=== PATIENT | female | born 1945 | race Caucasian/White ===

== ENCOUNTER 2017-09-14 17:37 | Inpatient (IN) | payer OTHER, MEDICARE ==
[2017-09-14] MEDS ORDERED: SODIUM CHLORIDE 1,000 ML IV STA (17:59)
[2017-09-14] MEDS ORDERED: ASPIRIN 81 MG CHEWABLE TABLETS PO ONE (17:59)
[2017-09-14] MEDS ORDERED: METOPROLOL TARTRATE 5 MG/5 ML VIAL IVPUSH ONE (17:59)
--- NOTE | 2017-09-14 17:59 | PDOC ---
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 She has been having these episodes occasionally for the past few weeks but they have always resolved quickly. She denies any chest pain, jaw pain, arm pain, or abdominal pain presently, and denies SOB, nausea, vomiting, or recent illness. She returned from a vacation to [facility] with her a week and a half ago. She does notes that she has been having occasional short-lived epigastric abdominal discomfort for the past three weeks, which she describes as jitters. These have occurred randomly without change with exertion or laying down flat. She actually decided to return early from [facility] because of these episodes. She also notes some occasional left upper back discomfort after eating. The patient was given 162 mg baby ASA at home just after the onset of symptoms. She and her family notes that there have been stressful family situations lately as their son is going through a difficult divorce. She was started on Paxil and alprazolam a week ago. Dr. Sood calls at the time that the patient arrives to the ED and notes that if she does need admission, her care should go to hospitalist team. Past History - Past Medical History Allergies/Adverse Reactions: Allergies Allergy/AdvReac Type Severity Reaction Status Date / Time No Known Allergies Allergy Verified 09/14/17 18:21 Home Medications: Ambulatory Orders Paroxetine HCl [Paxil] 20 mg PO DAILY 09/14/17 Rosuvastatin Calcium [Crestor] 5 mg PO MOWEFR 09/14/17 clonazePAM [Klonopin -] 0.5 mg PO BID 09/14/17 HTN: Yes Hypercholesterolemia: Yes - Suicide/Smoking/Psychosocial Hx Smoking History: Former smoker Number of Cigarettes Smoked Daily: 0 Review of Systems - Review of Systems Able to Perform ROS?: Yes Constitutional: No: Chills, Fever, Unexplained wgt Loss HEENTM: No: Nose Congestion, Throat Pain Respiratory: No: Cough, Shortness of Breath Cardiac (ROS): Yes: Palpitations. No: Chest Pain ABD/GI: Yes: Other (episodic upper abdominal discomfort, episodic left upper back discomfort). No: Constipated, Diarrhea, Nausea, Vomiting : No: Burning, Dysuria Musculoskeletal: No: Back Pain, Neck Pain Integumentary: No: Bruising, Rash Neurological: No: Headache, Numbness, Tingling, Weakness, Dizziness Endocrine: No: Unexplained Weight Gain, Unexplained Weight Loss *Physical Exam - Vital Signs Last Vital Signs Temp Pulse Resp BP Pulse Ox 97.4 F L 55 L 18 110/55 97 09/15/17 02:00 09/15/17 02:00 09/15/17 02:00 09/15/17 02:00 09/14/17 23:30 - Physical Exam General Appearance: Yes: Nourished, Appropriately Dressed, Mild Distress, Other (pale and slightly nervous appearing, but answering questions appropriately, accompanied by at bedside who is supportive) HEENT: positive: EOMI, MARTA, Normal ENT Inspection, Normal Voice, Hearing Grossly Normal. negative: Pale Conjunctivae, Scleral Icterus (R), Scleral Icterus (L), Nasal Congestion Neck: positive: Trachea midline, Supple. negative: Tender, Rigid Respiratory/Chest: positive: Lungs Clear, Normal Breath Sounds. negative: Respiratory Distress, Crackles, Rhonchi, Stridor, Wheezing Cardiovascular: positive: S1, S2, Tachycardia, Irregularly Irregular. negative : Edema, JVD, Murmur Gastrointestinal/Abdominal: positive: Normal Bowel Sounds, Flat, Soft. negative : Tender, Organomegaly, Pulsatile Mass, Guarding Musculoskeletal: positive: Normal Inspection. negative: Decreased Range of Motion, Vertebral Tenderness Extremity: positive: Normal Capillary Refill, Normal Inspection, Normal Range of Motion. negative: Tender, Cyanosis Integumentary: positive: Normal Color, Dry, Warm. 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 negative: EOM Palsy, Facial Droop, Numbness, Sensory Deficit, Confused, Disoriented Heart Score/ECG Review - History History: Moderately suspicious - Electrocardiogram EKG: Non specific repolarization disturbance - Age Age: >/= 65 - Risk Factors Risk Factors Heart Score: Yes Hx Hypercholesterolemia, Yes Hx Hypertension Based on the list above the patient has:: 1-2 risk factors - Troponin Troponin: </= normal limit - Score Heart Score - Total: 5 #1 09/14/17 17:55 Sinus tachycardia with supraventricular ectopy with ST elevations in aVR and V1 and reciprocal depressions inferolaterally which could be secondary to tachycardia but also are concerning for possible STEMI. #2 09/14/17 19:00 Sinus rhythm, rate of 71, with normal axis, no longer any ST elevations or depressions, no Q waves, good R wave progression, essentially normal EKG. ED Treatment Course - LABORATORY CBC & Chemistry Diagram: 09/14/17 18:22 09/14/17 19:10 - ADDITIONAL ORDERS Additional order review: Laboratory Results 09/14/17 09/14/17 09/14/17 19:19 19:10 19:10 PT with INR INR PTT (Actin FS) Sodium 138 Potassium 3.4 L Chloride 110 H Carbon Dioxide 22 Anion Gap 6 L BUN 15 Creatinine 0.8 Creat Clearance w eGFR > 60 Random Glucose 95 Calcium 8.4 Magnesium 1.7 L Total Bilirubin 0.7 AST 17 ALT 15 Alkaline Phosphatase 65 Creatine Kinase 33 Troponin I < 0.03 B-Natriuretic Peptide 261.29 H Total Protein 5.7 L Albumin 2.9 L TSH 1.13 Blood Type Antibody Screen 09/14/17 09/14/17 09/14/17 18:22 18:22 18:22 PT with INR 12.2 INR 1.09 PTT (Actin FS) 25.7 L Sodium Potassium Chloride Carbon Dioxide Anion Gap BUN Creatinine Creat Clearance w eGFR Random Glucose Calcium Magnesium Total Bilirubin AST ALT Alkaline Phosphatase Creatine Kinase Troponin I B-Natriuretic Peptide Cancelled Total Protein Albumin TSH Blood Type Cancelled Antibody Screen Cancelled 09/14/17 18:22 PT with INR Cancelled INR Cancelled PTT (Actin FS) Sodium Potassium Chloride Carbon Dioxide Anion Gap BUN Creatinine Creat Clearance w eGFR Random Glucose Calcium Magnesium Total Bilirubin AST ALT Alkaline Phosphatase Creatine Kinase Troponin I B-Natriuretic Peptide Total Protein Albumin TSH Blood Type Antibody Screen 09/14/17 18:22 RBC 4.24 MCV 90.5 MCHC 34.8 RDW 14.3 MPV 11.6 H Neutrophils % 70.9 Lymphocytes % 17.1 Monocytes % 7.6 Eosinophils % 2.1 Basophils % 2.3 H - RADIOLOGY Radiology Studies Ordered: Category Date Time Status CXRPORT [CHEST X-RAY PORTABLE*] [RAD] Stat Radiology 09/14/17 18:28 Completed - Medications Given in the ED: ED Medications Discontinued Medications Generic Name Dose Route Start Last Admin Trade Name Stan PRN Reason Stop Dose Admin Aspirin 162 mg 09/14/17 17:59 09/14/17 18:10 Asa - PO 09/14/17 18:00 162 mg ONCE ONE Administration Sodium Chloride 1,000 mls @ 1,000 mls/hr 09/14/17 17:59 09/14/17 18:10 Normal Saline - IV 09/14/17 18:58 1,000 mls/hr ASDIR STA Administration Magnesium Sulfate 1 gm 09/15/17 01:11 09/15/17 01:55 Magnesium Sulfate IVPB 09/15/17 01:12 1 gm ONCE ONE Administration Metoprolol Tartrate 5 mg 09/14/17 17:59 09/14/17 18:10 Lopressor Injection - IVPUSH 09/14/17 18:00 5 mg ONCE ONE Administration Metoprolol Tartrate 25 mg 09/14/17 18:55 09/14/17 19:17 Lopressor - PO 09/14/17 18:56 25 mg ONCE ONE Administration Potassium Chloride 40 meq 09/15/17 01:11 09/15/17 01:55 K-Dur - PO 09/15/17 01:12 40 meq ONCE ONE Administration Medical Decision Making - Medical Decision Making 72 YOF with h/o HTN and HLD presents with rapid palpitations x1 hour, episodic epigastric discomfort x3-4 weeks. VS notable for HR in the 120s Exam notable for pallor, anxious/uncomfortable appearance, rapid irregular heart rate, otherwise normal exam. DDX IBNLT ACS, SVT, A-fib with RVR, thyroid disease, Ordered is CBCD CMP Mg Phos Cardiac panel TSH UA UCx CXR EKG ASA 162 Metoprolol 5 mg push. Patient on monitor with O2 available, will reassess need for NTG after metoprolol but hold for now. EKG shows sinus tach with ectopy and AMADEO in aVR and V1, STD inferolaterally. First labs hemolyzed and redrawn. 09/14/17 18:45 Patient's HR improved dramatically after metoprolol, now in the 70s. On reassessment patient states she feels much better, appears slightly less pale. 09/14/17 19:00 Repeat EKG notable for NSR, rate of 71, no ST-T changes, normal EKG. CXR shows no e/o acute cardiopulmonary processes. Labs pending. HEART score is at least 5 (will be higher is troponin positive). Patient will need to be admitted for observation. Dr. Sood did call at the beginning of patient's visit; her admission goes to hospitalist team. Care endorsed to Dr. Delgado at the end of my shift. *DC/Admit/Observation/Transfer Diagnosis at time of Disposition: Palpitations, Tachycardia, Abnormal EKG - Referrals - Patient Instructions - Post Discharge Activity
[2017-09-14] MEDS ORDERED: ASPIRIN 81 MG CHEWABLE TABLETS ONE (18:08)
[2017-09-14] MEDS ORDERED: METOPROLOL TARTRATE 5 MG/5 ML VIAL ONE (18:08)
[2017-09-14] MEDS ORDERED: METOPROLOL TARTRATE 25 MG TABLET (FP) PO ONE (18:55)
[2017-09-14 19:04] LABS: BASO % 2.3 % (0-2.0); EOS % 2.1 % (0-4.5); HEMATOCRIT 38.4 % (32.4-45.2); HEMOGLOBIN 13.4 GM/dl (10.7-15.3); LYMPH % 17.1 % (8-40); MCH 31.5 pg (25.7-33.7); MCHC 34.8 g/dl (32.0-36.0); MEAN CELL VOLUME 90.5 fl (80-96); MEAN PLT VOLUME 11.6 fl (7.5-11.1); MONO % 7.6 % (3.8-10.2); NEUT % 70.9 % (42.8-82.8); PLATELET COUNT 198 K/MM3 (134-434); RBC 4.24 M/mm3 (3.60-5.2); RDW 14.3 % (11.6-15.6); WHITE BLOOD COUNT 7.2 K/mm3 (4.0-10.8)
[2017-09-14] MEDS ORDERED: METOPROLOL TARTRATE 50 MG TABLET (FP) ONE (19:15)
[2017-09-14 19:33] LABS: INR 1.09 (0.82-1.09); PROTHROMBIN TIME (PATIENT) 12.2 SEC (10.2-13.0)
[2017-09-14 19:41] LABS: ACTIVATED PTT 25.7 SECONDS (24.0-38.9)
[2017-09-14 19:51] LABS: ALBUMIN 2.9 g/dl (3.5-5.0); ALK PHOS 65 U/L (32-92); ANION GAP 6 (8-16); BILIRUBIN,TOTAL 0.7 mg/dl (0.2-1.0); BLOOD UREA NITROGEN 15 mg/dl (7-18); CALCIUM 8.4 mg/dl (8.4-10.2); CHLORIDE 110 mmol/L (98-107); CO2 22 mmol/L (22-28); CREATININE 0.8 mg/dl (0.6-1.3); GLUCOSE,RANDOM 95 mg/dl (74-106); MAGNESIUM 1.7 mg/dL (1.8-2.4); POTASSIUM 3.4 mmol/L (3.5-5.1); SGOT/AST 17 U/L (10-42); SGPT/ALT 15 U/L (10-40); SODIUM 138 mmol/L (136-145); TOT PROT 5.7 g/dl (6.4-8.3)
--- NOTE | 2017-09-14 19:59 | PDOC ---
*Physical Exam - Vital Signs Last Vital Signs Temp Pulse Resp BP Pulse Ox 97.8 F 66 20 156/76 100 09/14/17 17:41 09/14/17 19:23 09/14/17 19:23 09/14/17 19:23 09/14/17 19:23 <Stuart Delgadomi Atwood - Last Filed: 09/14/17 20:50> - Vital Signs Last Vital Signs Temp Pulse Resp BP Pulse Ox 97.8 F 66 20 156/76 100 09/14/17 17:41 09/14/17 19:23 09/14/17 19:23 09/14/17 19:23 09/14/17 19:23 <Kristine Alvarado - Last Filed: 09/14/17 21:12> ED Treatment Course - LABORATORY CBC & Chemistry Diagram: 09/14/17 18:22 09/14/17 19:10 - ADDITIONAL ORDERS Additional order review: Laboratory Results 09/14/17 09/14/17 09/14/17 19:10 18:22 18:22 PT with INR INR PTT (Actin FS) Sodium 138 Potassium 3.4 L Chloride 110 H Carbon Dioxide 22 Anion Gap 6 L BUN 15 Creatinine 0.8 Creat Clearance w eGFR > 60 Random Glucose 95 Calcium 8.4 Magnesium 1.7 L Total Bilirubin 0.7 AST 17 ALT 15 Alkaline Phosphatase 65 Creatine Kinase 33 B-Natriuretic Peptide Cancelled Total Protein 5.7 L Albumin 2.9 L Blood Type Cancelled Antibody Screen Cancelled 09/14/17 09/14/17 18:22 18:22 PT with INR 12.2 Cancelled INR 1.09 Cancelled PTT (Actin FS) 25.7 L Sodium Potassium Chloride Carbon Dioxide Anion Gap BUN Creatinine Creat Clearance w eGFR Random Glucose Calcium Magnesium Total Bilirubin AST ALT Alkaline Phosphatase Creatine Kinase B-Natriuretic Peptide Total Protein Albumin Blood Type Antibody Screen 09/14/17 18:22 RBC 4.24 MCV 90.5 MCHC 34.8 RDW 14.3 MPV 11.6 H Neutrophils % 70.9 Lymphocytes % 17.1 Monocytes % 7.6 Eosinophils % 2.1 Basophils % 2.3 H - Medications Given in the ED: ED Medications Discontinued Medications Generic Name Dose Route Start Last Admin Trade Name Freq PRN Reason Stop Dose Admin Aspirin 162 mg 09/14/17 17:59 09/14/17 18:10 Asa - PO 09/14/17 18:00 162 mg ONCE ONE Administration Sodium Chloride 1,000 mls @ 1,000 mls/hr 09/14/17 17:59 09/14/17 18:10 Normal Saline - IV 09/14/17 18:58 1,000 mls/hr ASDIR STA Administration Metoprolol Tartrate 5 mg 09/14/17 17:59 09/14/17 18:10 Lopressor Injection - IVPUSH 09/14/17 18:00 5 mg ONCE ONE Administration Metoprolol Tartrate 25 mg 09/14/17 18:55 09/14/17 19:17 Lopressor - PO 09/14/17 18:56 25 mg ONCE ONE Administration <Elizabeth Delgado - Last Filed: 09/14/17 20:50> - LABORATORY CBC & Chemistry Diagram: 09/14/17 18:22 09/14/17 19:10 - ADDITIONAL ORDERS Additional order review: Laboratory Results 09/14/17 09/14/17 09/14/17 19:10 19:10 18:22 PT with INR INR PTT (Actin FS) Sodium 138 Potassium 3.4 L Chloride 110 H Carbon Dioxide 22 Anion Gap 6 L BUN 15 Creatinine 0.8 Creat Clearance w eGFR > 60 Random Glucose 95 Calcium 8.4 Magnesium 1.7 L Total Bilirubin 0.7 AST 17 ALT 15 Alkaline Phosphatase 65 Creatine Kinase 33 Troponin I < 0.03 B-Natriuretic Peptide Total Protein 5.7 L Albumin 2.9 L Blood Type Cancelled Antibody Screen Cancelled 09/14/17 09/14/17 09/14/17 18:22 18:22 18:22 PT with INR 12.2 Cancelled INR 1.09 Cancelled PTT (Actin FS) 25.7 L Sodium Potassium Chloride Carbon Dioxide Anion Gap BUN Creatinine Creat Clearance w eGFR Random Glucose Calcium Magnesium Total Bilirubin AST ALT Alkaline Phosphatase Creatine Kinase Troponin I B-Natriuretic Peptide Cancelled Total Protein Albumin Blood Type Antibody Screen 09/14/17 18:22 RBC 4.24 MCV 90.5 MCHC 34.8 RDW 14.3 MPV 11.6 H Neutrophils % 70.9 Lymphocytes % 17.1 Monocytes % 7.6 Eosinophils % 2.1 Basophils % 2.3 H - Medications Given in the ED: ED Medications Discontinued Medications Generic Name Dose Route Start Last Admin Trade Name Freq PRN Reason Stop Dose Admin Aspirin 162 mg 09/14/17 17:59 09/14/17 18:10 Asa - PO 09/14/17 18:00 162 mg ONCE ONE Administration Sodium Chloride 1,000 mls @ 1,000 mls/hr 09/14/17 17:59 09/14/17 18:10 Normal Saline - IV 09/14/17 18:58 1,000 mls/hr ASDIR STA Administration Metoprolol Tartrate 5 mg 09/14/17 17:59 09/14/17 18:10 Lopressor Injection - IVPUSH 09/14/17 18:00 5 mg ONCE ONE Administration Metoprolol Tartrate 25 mg 09/14/17 18:55 09/14/17 19:17 Lopressor - PO 09/14/17 18:56 25 mg ONCE ONE Administration <Kristine Alvarado - Last Filed: 09/14/17 21:12> Medical Decision Making - Medical Decision Making 09/14/17 21:[address] to Dr. Marissa Trent, awaiting call back. <Kristine Alvarado - Last Filed: 09/14/17 21:12> *DC/Admit/Observation/Transfer - Discharge Dispostion Admit: Yes <Elizabeth Delgado - Last Filed: 09/14/17 20:50> - Attestations Scribe Attestion: 09/14/17 21:12 Documentation prepared by Kristine Alvarado, acting as medical chief technician for Elizabeth Delgado MD. <Kristine Alvarado - Last Filed: 09/14/17 21:12> Diagnosis at time of Disposition: Acute coronary syndrome, Supraventricular tachycardia - Discharge Dispostion Condition at time of disposition: Guarded - Referrals Referrals: Bacilio Sood MD [Primary Care Provider] - - Patient Instructions - Post Discharge Activity
[2017-09-14 21:19] LABS: N-TERMINAL BNP 261.29 pg/ml (5-125)
--- NOTE | 2017-09-14 23:22 | PDOC ---
Attending Attestation - Resident Resident Name: Cady Raymundo - ED Attending Attestation I have performed the following: I have examined & evaluated the patient, The case was reviewed & discussed with the resident, I agree w/resident's findings & plan, Exceptions are as noted - HPI HPI: 09/14/17 23:09 The patient is a 72 year old female with past medical history of hypertension, hyperlipidemia, depression, anxiety, and hip replacement 2 years ago who presents to the ED with complaints of palpitations for the past hour. She denies any associated chest pain, SOB, diaphoresis, jaw or arm pain. For the past three weeks she has noticed shes been having epigastric jitters. Pt had recent trip back from [place] a week and a half ago. The patient denies any associated fevers, chills, nausea, vomiting, diarrhea, cough, or urinary complaints. She notes shes been having a lot of family related stress recently as well. PCP: Bacilio Black - Physicial Exam PE: 09/14/17 23:22 GENERAL: Awake, alert, and fully oriented, in no acute distress HEAD: No signs of trauma EYES: PERRLA, EOMI, sclera anicteric, conjunctiva clear ENT: Auricles normal inspection, hearing grossly normal, nares patent, oropharynx clear without exudates. Moist mucosa NECK: Normal ROM, supple, no lymphadenopathy, JVD, or masses LUNGS: Breath sounds equal, clear to auscultation bilaterally. No wheezes, and no crackles HEART: Irregularly irregular, normal S1 and S2, no murmurs, rubs or gallops ABDOMEN: Soft, nontender, normoactive bowel sounds. No guarding, no rebound. No masses EXTREMITIES: Normal range of motion, no edema. No clubbing or cyanosis. No cords, erythema, or tenderness BACK: No midline spinal tenderness in cervical/thoracic/lumbar region NEUROLOGICAL: Normal speech, cranial nerves intact, negative pronator drift, 5/ 5 strength in all 4 extremities, normal sensation to light touch in all 4 extremities, normal cerebellar exam, normal gait, normal reflexes and tone SKIN: Warm, Dry, normal turgor, no rashes or lesions noted. - Medical Decision Making 09/14/17 19:00 72yo F hx HTN, HL p/w palpatations, found to be in AF in RVR to 140s. Initial EKG with AMADEO in AVL and STD in V4-6 which were rate dependent. After metoprolol 5mg IV -> repeat EKG with resolution of AMADEO and STD with rate 71, NSR. Labs/CXR pending, pt signed out to Dr. Delgado for further mgmt/dispo.
[2017-09-15] MEDS ORDERED: POTASSIUM CHLORIDE TABS 20 MEQ TABLET.ER (FP) PO ONE (01:11)
[2017-09-15] MEDS ORDERED: MAGNESIUM SULF 50% (8.12 MEQ/2 ML-1 GM VIAL) IVPB ONE (01:11)
--- NOTE | 2017-09-15 01:19 | HP ---
CHIEF COMPLAINT: palpitations x 1 hr PCP: Dr. Sood HISTORY OF PRESENT ILLNESS: 72 y/o F with PMH HTN, HLD, depression, anxiety, s/p hip replacement, who presents to the [facility] ED c/o irregular palpitations for one hour. As per patient, at 5pm she had strong heart palpitations, so her drove her to [facility]. Pt describes the sensation as "a rapid heartbeat," but states that it is not a/w chest pain, diaphoresis, jaw or LUE radiation. When it began, she took two baby aspirins at home. She has had similar palpitations twice before, the last being one month ago when she was in [facility]. During all of her episodes, she has taken two aspirins and it has resolved. Pt states that she has had increased stress recently as her son is undergoing a divorce. At this time, pt also endorses a "trembling" sensation in her stomach when she gets nervous, which has caused a lack of appetite, insomnia, and recent twenty pound weight loss. Pt saw Dr. Sood for these sx and received anxiety medications which she stated helped very much. Pt denies RYAN, fever, chills, SOB, chest pain or pressure, or changes in urinary or bowel function. When patient was at [facility], she was found to be in afib with RVR with HR in 140's, along with ST depressions in V4-V6. She was given aspirin 162mg PO x 1 , metoprolol 25mg PO x 1 , as well as a push of metoprolol- IVP 5mg x 1 and reconverted back to sinus. ER course was notable for: (1) aspirin 162mg PO (2) metoprolol 25mg PO x1 (3) metoprolol IVP 5mg x 1 (4) initial trop (-) Recent Travel: [place] one month ago PAST MEDICAL HISTORY: as above PAST SURGICAL HISTORY: s/p L hip replacement (3 yrs ago), R oopherectomy (15 yrs ago) Social History: retired; previously worked as a book keeper and seller for [employer] Smoking: does not smoke currently. previously smoked for 3-4 yrs "intermittently " 2-3 cigarettes/week Alcohol: denies Drugs: denies Family History: father- kidney dz. mother- stroke, HTN. brother- HTN Allergies Green vasquez peppers- causes N/V Codeine - throat closure HOME MEDICATIONS: Home Medications Medication Instructions Recorded Paroxetine HCl [Paxil] 20 mg PO DAILY 09/14/17 Rosuvastatin Calcium [Crestor] 5 mg PO MOWEFR 09/14/17 clonazePAM [Klonopin -] 0.5 mg PO BID 09/14/17 REVIEW OF SYSTEMS CONSTITUTIONAL: Absent: fever, chills, diaphoresis, generalized weakness, malaise, loss of appetite, weight change HEENT: Absent: rhinorrhea, nasal congestion, throat pain, throat swelling, difficulty swallowing, mouth swelling, ear pain, eye pain, visual changes CARDIOVASCULAR: +palpitations, irregular HR Absent: chest pain, syncope, lightheadedness, peripheral edema RESPIRATORY: Absent: cough, shortness of breath, dyspnea with exertion, orthopnea, wheezing, stridor, hemoptysis GASTROINTESTINAL: Absent: abdominal pain, abdominal distension, nausea, vomiting, diarrhea, constipation, melena, hematochezia GENITOURINARY: Absent: dysuria, frequency, urgency, hesitancy, hematuria, flank pain, genital pain MUSCULOSKELETAL: Absent: myalgia, arthralgia, joint swelling, back pain, neck pain SKIN: Absent: rash, itching, pallor HEMATOLOGIC/IMMUNOLOGIC: Absent: easy bleeding, easy bruising, lymphadenopathy, frequent infections ENDOCRINE: Absent: unexplained weight gain, unexplained weight loss, heat intolerance, cold intolerance NEUROLOGIC: Absent: headache, focal weakness or paresthesias, dizziness, unsteady gait, seizure, mental status changes, bladder or bowel incontinence PSYCHIATRIC: Absent: anxiety, depression, suicidal or homicidal ideation, hallucinations. PHYSICAL EXAMINATION Vital Signs 09/14/17 09/14/17 09/14/17 17:41 18:10 18:30 Temperature 97.8 F Pulse Rate 146 H Pulse Rate [ 96 H Apical] Respiratory 16 20 Rate Blood Pressure 114/95 114/95 Blood Pressure 110/85 [Arm] O2 Sat by Pulse 96 98 Oximetry (%) 09/14/17 09/14/17 09/14/17 18:49 19:23 21:25 Temperature Pulse Rate Pulse Rate [ 71 66 61 Apical] Respiratory 16 20 14 Rate Blood Pressure Blood Pressure 117/95 156/76 118/88 [Arm] O2 Sat by Pulse 100 100 100 Oximetry (%) GENERAL: Pleasant woman. Resting comfortably, awake, alert, and fully oriented, in no acute distress. HEAD: Normal with no signs of trauma. EYES: Pupils equal, round and reactive to light, extraocular movements intact, sclera anicteric, conjunctiva clear. EARS, NOSE, THROAT: Ears normal, nares patent, oropharynx clear without exudates. Moist mucous membranes. NECK: Normal range of motion, supple . LUNGS: Breath sounds equal, clear to auscultation bilaterally. No wheezes, and no crackles. No accessory muscle use. HEART: Regular rate and rhythm - in sinus during exam. normal S1 and S2 without murmur, rub or gallop. ABDOMEN: Soft, nontender, not distended, normoactive bowel sounds, no guarding, no rebound, no masses. LOWER EXTREMITIES: 2+ posterior tibial pulses, warm, well-perfused. No calf tenderness. No peripheral edema. NEUROLOGICAL: Cranial nerves II-XII intact. PSYCHIATRIC: Cooperative. Calm Laboratory Results - last 24 hr 09/14/17 09/14/17 18:22 18:22 WBC 7.2 RBC 4.24 Hgb 13.4 Hct 38.4 MCV 90.5 MCH 31.5 MCHC 34.8 RDW 14.3 Plt Count 198 MPV 11.6 H Neutrophils % 70.9 Lymphocytes % 17.1 Monocytes % 7.6 Eosinophils % 2.1 Basophils % 2.3 H PT with INR 12.2 INR 1.09 PTT (Actin FS) 25.7 L Blood Type Antibody Screen 09/14/17 19:10 WBC Troponin I < 0.03 B-Natriuretic Peptide Antibody Screen 09/14/17 09/14/17 19:10 19:19 PTT (Actin FS) Sodium 138 Potassium 3.4 L Chloride 110 H Carbon Dioxide 22 Anion Gap 6 L BUN 15 Creatinine 0.8 Creat Clearance w eGFR > 60 Random Glucose 95 Calcium 8.4 Magnesium 1.7 L Total Bilirubin 0.7 AST 17 ALT 15 Alkaline Phosphatase 65 Creatine Kinase 33 Troponin I B-Natriuretic Peptide 261.29 H Total Protein 5.7 L Albumin 2.9 L TSH 1.13 Blood Type Antibody Screen TESTS CXR: without acute pathology. shows tortuosity and calcification of thoracic aorta, degenerative changes in thoracic spine Initial EKG at [facility]: afib with RVR , HR 140's. st depressions V4-V6 Subsequent EKG at [facility] (after metoprolol): converted back to sinus - NSR, rate 70, no st depressions evident ASSESSMENT/PLAN: 72 y/o F with PMH HTN, HLD, depression, anxiety, s/p hip replacement, who presents to the [facility] ED c/o irregular palpitations for one hour. Pt admitted to telemetry for R/o ACS, new onset Afib with RVR. #R/o ACS -though pt without chest pain, c/o chest palpitations - will r/o ACS -initial troponin 0.03 (-). continue to trend trops q6h. Next trop 6AM -continue to follow EKG -telemetry monitoring -F/u lipid panel #New onset Afib with RVR -Pt received rate control metoprolol tartate 25mg PO x 1, metoprolol IVP 5mg in ED -Will start on metoprolol succinate 12.5mg PO qd starting tomorrow for rate control -CHADS2 score = 1 , aspirin for a/c -Started on aspirin 81mg PO qd -F/u ECHO -Will likely need cath, as with ischemic changes on EKG - V4-V6 STdepressions -Cardio consult- Dr. Ann - spoke to ED, will see pt in AM #Hypomagnesemia, hypokalemia -Mg 1.7, K 3.4 -Goal Mg >2, K>4 -Will replete with mgsulfate 1g, Kdur 40mEq -Continue to follow level #HTN- currently controlled -Pt has not been on antiHTN recently -Started on metoprolol 12.5mg PO qd for rate control afib #HLD -Continue pt's home medication of crestor 5mg x 3 / week #Depression/anxiety -Will hold Paxil, Klonopin -Confirm home dose #F/E/N -No need for IVF at this time -Monitor electrolytes - especially Mg, K -HTN diet #PPX DVT: early amb, SCD's #Dispo Continued monitoring on telemetry Visit type - Emergency Visit Emergency Visit: Yes ED Registration Date: 09/14/17 Care time: The patient presented to the Emergency Department on the above date and was hospitalized for further evaluation of their emergent condition. - New Patient This patient is new to me today: Yes Date on this admission: 09/15/17 - Critical Care Critical Care patient: No Hospitalist Screening - Colonoscopy Questionnaire Colonoscopy Questionnaire: Colonoscopy Questionnaire - Patient: 50 - 75 years old and never had a screening colonoscopy: Unknown History of colon or rectal polyps, or CA: Unknown History of IBD, Crohn's disease or UC: Unknown History of abdominal radiation therapy as a child: Unknown - Relative: 1 with colon or rectal CA, or polyps at age 60 or younger: Unknown Colon or rectal CA diagnosed at age 45 or younger: Unknown Multiple relatives with colon or rectal CA: Unknown - Outcome: Screening Result: Negative Screen
--- NOTE | 2017-09-15 01:19 | PN ---
Teaching Attending Note Name of Resident: Alida Bennett ATTENDING PHYSICIAN STATEMENT I saw and evaluated the patient. I reviewed the resident's note and discussed the case with the resident. I agree with the resident's findings and plan as documented. SUBJECTIVE: This is a 72 year old woman with a history of HTN, hyperlipidemia, depression, anxiety who presented to the [facility] complaining of palpitations. She describes a feeling that her heart was racing. She had no CP, SOB. Symptoms started 1 hour prior to presentation. She took two baby aspirin. In the ED, she was found to be tachycardic, and EKG was thought to be rapid a fib with ischemic changes. She reports recent increased stress and anxiety, and weight loss. In the ED, she was treated with Lopressor 5 mg IVP and 25 mg PO, and she converted to sinus rhythm. OBJECTIVE: Vital Signs Period Temp Pulse Resp BP Sys/Rhodes Pulse Ox Last 24 Hr 97.8 F-98.2 F 60-146 14-20 110-156/67-95 96-100 HEART: S1S2, RRR LUNGS: Clear ABDOMEN: Soft, non-tender, non-distended, normal BS EXTREMITIES: No edema Laboratory Tests 09/14/17 09/14/17 09/14/17 18:22 18:22 18:22 WBC 7.2 RBC 4.24 Hgb 13.4 Hct 38.4 MCV 90.5 MCH 31.5 MCHC 34.8 RDW 14.3 Plt Count 198 MPV 11.6 H Neutrophils % 70.9 Lymphocytes % 17.1 Monocytes % 7.6 Eosinophils % 2.1 Basophils % 2.3 H PT with INR Cancelled 12.2 INR Cancelled 1.09 PTT (Actin FS) 25.7 L Sodium Potassium Chloride Carbon Dioxide Anion Gap BUN Creatinine Creat Clearance w eGFR Random Glucose Calcium Magnesium Total Bilirubin AST ALT Alkaline Phosphatase Creatine Kinase Troponin I B-Natriuretic Peptide Total Protein Albumin TSH Blood Type Antibody Screen 09/14/17 09/14/17 09/14/17 18:22 18:22 19:10 WBC RBC Hgb Hct MCV MCH MCHC RDW Plt Count MPV Neutrophils % Lymphocytes % Monocytes % Eosinophils % Basophils % PT with INR INR PTT (Actin FS) Sodium Potassium Chloride Carbon Dioxide Anion Gap BUN Creatinine Creat Clearance w eGFR Random Glucose Calcium Magnesium Total Bilirubin AST ALT Alkaline Phosphatase Creatine Kinase Troponin I < 0.03 B-Natriuretic Peptide Cancelled Total Protein Albumin TSH Blood Type Cancelled Antibody Screen Cancelled 09/14/17 09/14/17 19:10 19:19 WBC RBC Hgb Hct MCV MCH MCHC RDW Plt Count MPV Neutrophils % Lymphocytes % Monocytes % Eosinophils % Basophils % PT with INR INR PTT (Actin FS) Sodium 138 Potassium 3.4 L Chloride 110 H Carbon Dioxide 22 Anion Gap 6 L BUN 15 Creatinine 0.8 Creat Clearance w eGFR > 60 Random Glucose 95 Calcium 8.4 Magnesium 1.7 L Total Bilirubin 0.7 AST 17 ALT 15 Alkaline Phosphatase 65 Creatine Kinase 33 Troponin I B-Natriuretic Peptide 261.29 H Total Protein 5.7 L Albumin 2.9 L TSH 1.13 Blood Type Antibody Screen Home Medications Medication Instructions Recorded Paroxetine HCl [Paxil] 20 mg PO DAILY 09/14/17 Rosuvastatin Calcium [Crestor] 5 mg PO MOWEFR 09/14/17 clonazePAM [Klonopin -] 0.5 mg PO BID 09/14/17 ASSESSMENT AND PLAN: This is a 72 year old woman with a history of HTN, hyperlipidemia, depression, anxiety who presented to the ED with palpitations and was found to be in rapid atrial fib. 1. Atrial fibrillation, new-onset, with RVR - Admit to telemetry - EKG showed ischemic changes which resolved once back in sinus rhythm - Serial troponins - Lopressor PO - [id number] score is 3 - will start anticoagulation - Echocardiogram - Cardiology consult 2. Hypokalemia - Replete potassium - keep >4.0 3. Hypomagnesemia - Supplement magnesium - keep >2.0 4. Hypertension - On no meds - Lopressor being started 5. Hyperlipidemia - Continue Crestor 6. Depression with anxiety - Continue Paxil, Klonopin
[2017-09-15 05:27] VITALS: BMI 29.3
[2017-09-15 06:42] LABS: BASO % 2.3 % (0-2.0); EOS % 3.6 % (0-4.5); HEMOGLOBIN 11.2 GM/dL (10.7-15.3); LYMPH % 30.8 % (8-40); MCH 31.7 pg (25.7-33.7); MCHC 34.1 g/dl (32.0-36.0); MEAN CELL VOLUME 93.1 fl (80-96); MEAN PLT VOLUME 10.4 fl (7.5-11.1); MONO % 10.4 % (3.8-10.2); NEUT % 52.9 % (42.8-82.8); PLATELET COUNT 169 K/MM3 (134-434); RBC 3.54 M/mm3 (3.60-5.2); WHITE BLOOD COUNT 4.8 K/mm3 (4.0-10.0)
[2017-09-15 07:21] LABS: ANION GAP 5 (8-16); BLOOD UREA NITROGEN 13 mg/dL (7-18); CALCIUM 8.3 mg/dL (8.5-10.1); CHLORIDE 112 mmol/L (98-107); CHOLESTEROL 147 mg/dL (50-200); CO2 26 mmol/L (21-32); CREATININE 0.7 mg/dL (0.55-1.02); GLUCOSE,RANDOM 78 mg/dL (74-106); MAGNESIUM 2.2 mg/dL (1.8-2.4); PHOSPHOROUS 2.9 mg/dL (2.5-4.9); POTASSIUM 4.3 mmol/L (3.5-5.1); SODIUM 143 mmol/L (136-145)
[2017-09-15 07:39] LABS: URINE APPEARANCE CLEAR; URINE BILIRUBIN NEGATIVE (NEGATIVE); URINE COLOR LTYELLOW; URINE GLUCOSE (UA) NEGATIVE (NEGATIVE); URINE KETONE NEGATIVE (NEGATIVE); URINE NITRITE NEGATIVE (NEGATIVE); URINE PROTEIN NEGATIVE (NEGATIVE); URINE UROBILINOGEN NEGATIVE mg/dL (0.2-1.0)
[2017-09-15 07:41] LABS: URINE LEUK ESTERASE 2+ (NEGATIVE)
[2017-09-15 07:45] LABS: EPI CELLS RARE /HPF (FEW); URINE BACTERIA RARE /hpf (NONE SEEN); URINE MUCUS RARE
--- NOTE | 2017-09-15 09:57 | EKG ---
Test Reason : Blood Pressure : / mmHG Vent. Rate : 071 BPM Atrial Rate : 071 BPM P-R Int : 174 ms QRS Dur : 088 ms QT Int : 384 ms P-R-T Axes : 057 -12 043 degrees QTc Int : 417 ms NORMAL SINUS RHYTHM POSSIBLE LEFT ATRIAL ENLARGEMENT LEFT VENTRICULAR HYPERTROPHY ABNORMAL ECG Confirmed by JENAE HENAO MD ([id number]) on 09/15/2017 9:57:42 AM Referred By: DR ALVARADO Confirmed By:JENAE HENAO MD
--- NOTE | 2017-09-15 09:59 | EKG ---
Test Reason : Blood Pressure : / mmHG Vent. Rate : 145 BPM Atrial Rate : 147 BPM P-R Int : 172 ms QRS Dur : 084 ms QT Int : 326 ms P-R-T Axes : 052 010 198 degrees QTc Int : 506 ms ATRIAL FIBRILLATION WITH RAPID VENTRICULAR RESPONSE ABNORMAL ECG Confirmed by JENAE EHNAO MD ([id number]) on 09/15/2017 9:59:26 AM Referred By: DR ALVARADO Confirmed By:JENAE HENAO MD
[2017-09-15] MEDS ORDERED: ENOXAPARIN NA (PORCINE) 80 MG/0.8 ML DISP.SYRIN SQ SCH (10:00)
[2017-09-15] MEDS ORDERED: metoPROLOL SUCCINATE 25 MG TAB.SR.24H (FP) PO SCH (10:00)
[2017-09-15] MEDS ORDERED: ASPIRIN COATED 81 MG TABLET.EC PO SCH (10:00)
--- NOTE | 2017-09-15 11:31 | CON.PULM ---
Consult Consult Specialty:: PULMONARY Referred by:: LUIS E Reason for Consultation:: SOB - History of Present Illness Chief Complaint: PALPITATIONS/SOB History of Present Illness: This is a 72 white female with h/o HTN (mild untreated), HLD (taking crestor), depression/anxiety (on Paxil and alprazolam), and hip replacement two years ago who p/w rapid and irregular palpitations for the past hour [employer]IST to the ED. She has been having these episodes occasionally for the past few weeks but they have always resolved quickly. She denies any chest pain, jaw pain, arm pain, or abdominal pain presently, and denies SOB, nausea, vomiting, or recent illness. She returned from a vacation to [facility] with her a week and a half ago. She does notes that she has been having occasional short-lived epigastric abdominal discomfort for the past three weeks, which she describes as jitters. These have occurred randomly without change with exertion or laying down flat. She actually decided to return early from [facility] because of these episodes. She also notes some occasional left upper back discomfort after eating which is relieved by burping. She and her family notes that there have been stressful family situations lately as their son is going through a difficult divorce. She was started on Paxil and alprazolam a week ago. 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 No: AFIB Pulmonary: Yes: Pneumonia. No: Asthma, COPD, O2 Dependent Gastrointestinal: No: Constipation Hepatobiliary: No: Cirrhosis Renal/: No: Renal Failure Reproductive: Yes: Postmenopausal ...: No Heme/Onc: No: Anemia Infectious Disease: No: AIDS Psych: No: Addictions Musculoskeletal: No: Chronic low back pain Rheumatology: No: Fibromyalgia ENT: No: Allergic Rhinitis Endocrine: No: Diabetes Mellitus - Past Surgical History Past Surgical History: Yes: Joint Replacement - Alcohol/Substance Use Hx Alcohol Use: No - Smoking History Smoking history: Former smoker Have you smoked in the past 12 months: No Aproximately how many cigarettes per day: 0 If you are a former smoker, when did you quit?: 50YRS AGO - Social History Usual Living Arrangement: With Spouse Place of : [facility] History of Recent Travel: Yes ([place]) Home Medications - Allergies Allergies/Adverse Reactions: Allergies Allergy/AdvReac Type Severity Reaction Status Date / Time No Known Allergies Allergy Verified 09/14/17 18:21 - Home Medications Home Medications: Ambulatory Orders Paroxetine HCl [Paxil] 20 mg PO DAILY 09/14/17 Rosuvastatin Calcium [Crestor] 5 mg PO DAILY 09/14/17 clonazePAM [Klonopin -] 0.5 mg PO BID 09/14/17 Family Disease History - Family Disease History Family Disease History: Other: Mother (AF/THYROID) Review of Systems - Review of Systems Constitutional: reports: Lethargy, Loss of Appetite, Weakness. denies: Fever Eyes: denies: Blurred Vision HENT: denies: Difficult Swallowing Neck: denies: Decreased ROM Cardiovascular: reports: Palpitations. denies: Chest Pain Respiratory: reports: Exercise Intolerance, SOB on Exertion. denies: Cough, Hemoptysis, Wheezing Gastrointestinal: denies: Abdominal Pain Genitourinary: reports: No Symptoms Breasts: reports: No Symptoms Reported Musculoskeletal: reports: Back Pain Integumentary: reports: No Symptoms Neurological: reports: No Symptoms Physical Exam Vital Sings: Vital Signs Temperature 97.8 F 09/15/17 07:32 Pulse Rate 65 09/15/17 07:32 Respiratory Rate 18 09/15/17 07:35 Blood Pressure 124/71 09/15/17 07:32 O2 Sat by Pulse Oximetry (%) 97 09/15/17 07:35 Constitutional: Yes: Calm Eyes: Yes: EOM Intact HENT: Yes: Normocephalic Neck: Yes: Trachea Midline Cardiovascular: Yes: Regular Rate and Rhythm, S1, S2 Respiratory: Yes: CTA Bilaterally Gastrointestinal: Yes: Normal Bowel Sounds Edema: No Neurological: Yes: Alert Labs: CBC, BMP 09/15/17 06:15 09/15/17 06:15 ALL REVIEWED Imaging - Results Chest X-ray: Report Reviewed, Image Reviewed EKG: Report Reviewed, Image Reviewed Other: Report Reviewed (ECHO) Problem List - Problems (1) Atrial fibrillation with rapid ventricular response Code(s): I48.91 - UNSPECIFIED ATRIAL FIBRILLATION (2) HTN (hypertension) Code(s): I10 - ESSENTIAL (PRIMARY) HYPERTENSION Assessment/Plan PAF new onset s/p THR ? r/o ischemic disease Cardiac consult BP control anticoagulation beta magali as ordered R SERAFIN MD
--- NOTE | 2017-09-15 12:18 | CON.CARD ---
Consult Consult Specialty:: Cardiology Referred by:: Hospitalist Medicine Reason for Consultation:: Rapid atrial fibrillation - History of Present Illness Chief Complaint: Palpitations History of Present Illness: 72 year old woman with a history of HTN, hyperlipidemia, depression, anxiety who presented to the [facility] ED complaining of palpitations. She describes a feeling that her heart was racing. She had no CP, SOB. Symptoms started 1 hour prior to presentation. She took two baby aspirin. In the ED, she was found to be tachycardic, and EKG was thought to be rapid afib with rate-related changes. She reports recent increased stress and anxiety, and weight loss. In the ED, she was treated with Lopressor 5 mg IVP and 25 mg PO, and she converted to sinus rhythm and remains in sinus since admission. 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 No: AFIB Pulmonary: Yes: Pneumonia. No: Asthma, COPD, O2 Dependent Gastrointestinal: No: Constipation Hepatobiliary: No: Cirrhosis Renal/: No: Renal Failure ...: No Infectious Disease: No: AIDS Psych: No: Addictions Musculoskeletal: No: Chronic low back pain Rheumatology: No: Fibromyalgia ENT: No: Allergic Rhinitis Endocrine: No: Diabetes Mellitus - Past Surgical History Past Surgical History: Yes: Joint Replacement - Alcohol/Substance Use Hx Alcohol Use: No - Smoking History Smoking history: Former smoker Have you smoked in the past 12 months: No Aproximately how many cigarettes per day: 0 If you are a former smoker, when did you quit?: 50YRS AGO - Social History Usual Living Arrangement: With Spouse History of Recent Travel: Yes ([place]) Home Medications - Allergies Allergies/Adverse Reactions: Allergies Allergy/AdvReac Type Severity Reaction Status Date / Time No Known Allergies Allergy Verified 09/14/17 18:21 - Home Medications Home Medications: Ambulatory Orders Paroxetine HCl [Paxil] 20 mg PO DAILY 09/14/17 Rosuvastatin Calcium [Crestor] 5 mg PO DAILY 09/14/17 clonazePAM [Klonopin -] 0.5 mg PO BID 09/14/17 Apixaban [Eliquis] 5 mg PO BID #60 tablet 09/15/17 Metoprolol Succinate [Toprol XL -] 12.5 mg PO DAILY #30 tab.sr.24h 09/15/17 Rivaroxaban [Xarelto -] 20 mg PO DAILY #30 tablet 09/15/17 Family Disease History - Family Disease History Family Disease History: Other: Mother (AF/THYROID) Review of Systems - Review of Systems Cardiovascular: reports: Palpitations Vital Signs: Vital Signs Temperature 97.8 F 09/15/17 07:32 Pulse Rate 65 09/15/17 07:32 Respiratory Rate 18 09/15/17 07:35 Blood Pressure 124/71 09/15/17 07:32 O2 Sat by Pulse Oximetry (%) 97 09/15/17 07:35 Constitutional: Yes: No Distress, Calm Neck: Yes: Supple Respiratory: Yes: Regular, CTA Bilaterally Gastrointestinal: Yes: Normal Bowel Sounds, Soft Cardiovascular: Yes: Regular Rate and Rhythm JVD: No Carotid Bruit: No Heart Sounds: Yes: S1, S2 Murmur: Yes: Systolic Murmur, Grade 1 Edema: No - Other Data Labs, Other Data: CBC, BMP 09/15/17 06:15 09/15/17 06:15 INR, PTT INR 1.09 (0.82-1.09) 09/14/17 18:22 Troponin, BNP 09/14/17 09/14/17 09/14/17 18:22 19:10 19:19 Troponin I < 0.03 B-Natriuretic Peptide Cancelled 261.29 H 09/15/17 09/15/17 09/15/17 01:30 06:15 06:15 Troponin I < 0.02 < 0.02 Cancelled B-Natriuretic Peptide Troponin, BNP 09/14/17 09/14/17 09/14/17 18:22 19:10 19:19 Troponin I < 0.03 B-Natriuretic Peptide Cancelled 261.29 H 09/15/17 09/15/17 09/15/17 01:30 06:15 06:15 Troponin I < 0.02 < 0.02 Cancelled B-Natriuretic Peptide Afib->145 to SR @ 71 Ejection Fraction %: LVEF > or = 40 % Imaging - Results Chest X-ray: Report Reviewed (NAD) Problem List - Problems (1) Anxiety disorder Code(s): F41.9 - ANXIETY DISORDER, UNSPECIFIED Qualifiers: Anxiety disorder type: unspecified anxiety disorder Qualified Code(s): F41.9 - Anxiety disorder, unspecified (2) Hyperlipidemia Code(s): E78.5 - HYPERLIPIDEMIA, UNSPECIFIED Qualifiers: Hyperlipidemia type: pure hypercholesterolemia Qualified Code(s): E78.00 - Pure hypercholesterolemia, unspecified; E78.0 - Pure hypercholesterolemia (3) Atrial fibrillation with rapid ventricular response Code(s): I48.91 - UNSPECIFIED ATRIAL FIBRILLATION (4) HTN (hypertension) Code(s): I10 - ESSENTIAL (PRIMARY) HYPERTENSION Qualifiers: Hypertension type: essential hypertension Qualified Code(s): I10 - Essential (primary) hypertension Assessment/Plan 1. Palpitations referable to paroxysmal atrial fibrillation with RVR [id number] 2 2. HTN 3. Hyperlipidemia 4. Anxiety d/o P:1. Ruled out for CO 2. Start Eliquis 5 bid given elevated risk score, continue Toprol XL, Crestor 3. Patient may be d/zora with f/u in office [phone] 4. Thank you for consultative opportunity
--- NOTE | 2017-09-15 12:22 | PN ---
Teaching Attending Note Name of Resident: Jaret Cintron ATTENDING PHYSICIAN STATEMENT I saw and evaluated the patient. I reviewed the resident's note and discussed the case with the resident. I agree with the resident's findings and plan as documented. SUBJECTIVE: No fever or chills. has no CP or palpitations today. nO Cp , denied any CP before or with her palpitations. no dysuria /frequency/or abd pain OBJECTIVE: NAD , awake and cooperative MMM, no LAP , CV: RRR, Lungs: CATB Ext; no edema. Abd: soft, NT, ND , Nl BS. ASSESSMENT AND PLAN: 72 y/o lady with h/o HTN, depression , THR, depression and anxiety who presented with palpitations and was found ot have A fib. 1- New onset A fib. now in sinus rhythm. no signs of heart failure TSH NL, no signs of infection ( asymptomatic pyuria) - echo reviewed, no significant valvular pathology - cont toprol , monitor BP - [id number] of 3. AC is indicated especially it happened twice before this ( P A fib ) - AC side effects of spontaneous/ traumatic bleeding even life threatening bleeding were discussed. Risk of stroke, and risk reduction with AC were also discussed. AC options of Coumadin, NOACS, Lovenox were given. risk of epidural bleed with NOACS was also mentioned. she agreed to AC and leaning towards NOACS. She will make a decision later today. cont lovenox inmean time - I do not suspect cardiac iscehmia despite ST depression during tachycardia . repeat EKG with sinus rhythm with no ischemic changes andnl trop x 3 - card consult pending for any additional Recs 2- H/o HTN, was not on meds due to weight loss. monitor BP on toprol possibel dc later today
--- NOTE | 2017-09-15 13:56 | DS ---
Physical Exam: Selected Entries 09/14/17 09/15/17 17:41 14:00 Temperature 97.8 F 98.3 F Pulse Rate 146 H 62 Blood Pressure 114/95 146/80 Laboratory Tests 09/14/17 09/14/17 09/14/17 18:22 19:10 19:19 WBC Hgb Hct Plt Count PTT (Actin FS) 25.7 L Sodium Potassium Chloride Carbon Dioxide Anion Gap BUN Creatinine Troponin I < 0.03 B-Natriuretic Peptide 261.29 H Cholesterol TSH 1.13 Ur Leukocyte Esterase Urine WBC (Auto) 09/15/17 09/15/17 09/15/17 01:30 06:00 06:15 WBC 4.8 Hgb 11.2 Hct 33.0 Plt Count 169 PTT (Actin FS) Sodium Potassium Chloride Carbon Dioxide Anion Gap BUN Creatinine Troponin I < 0.02 B-Natriuretic Peptide Cholesterol TSH Ur Leukocyte Esterase 2+ H Urine WBC (Auto) 13 09/15/17 06:15 WBC Hgb Hct Plt Count PTT (Actin FS) Sodium 143 Potassium 4.3 Chloride 112 H Carbon Dioxide 26 Anion Gap 5 L BUN 13 Creatinine 0.7 Troponin I < 0.02 B-Natriuretic Peptide Cholesterol 147 TSH Ur Leukocyte Esterase Urine WBC (Auto) Imaging: cxr: no acute pathology ekg: atrial fibrillation with RVR @ 145 bpm echo: lv normal, moderate mitral annular calcification, mild MR, TR, and NH. HOSPITAL COURSE: Date of Admission:09/14/17 Date of Discharge: 09/15/17 72 y/o F with PMH HLD, depression, anxiety, s/p hip replacement, who presented with irregular palpitations x 1 hr to the [place] ED c/o irregular palpitations for one hour. Patient admitted for new onset atrial fibrillation. Patient was given asa 162 mg, ivf NS, iv lopressor 5 mg, and 25 mg po and converted to sinus rhythm. Patient underwent echocardiogram, which revealed no significant abnormalities. Patient started on xarelto 20 mg daily and toprol xl 25 mg po daily. Patient will follow up with pcp and cardiology within 1 week. Minutes to complete discharge: 45 Discharge Summary Reason For Visit: SVT/ACS Current Active Problems Anxiety disorder (Chronic) Hyperlipidemia (Chronic) Condition: Stable - Instructions Diet, Activity, Other Instructions: You were in the hospital for palpitations and were found to be in an abnormal heart rhythm called Atrial Fibrillation. Your heart rhythm was restored to a normal rhythm with medications you received in the emergency room. You will need to be on a intermission coordinator blood thinner with Xarelto. It is important to take this medication every day to reduce the risk of developing a clot in your heart that may cause a stroke. Please follow up with your primary care provider within 1 week. Please follow up with the senior engineering specialist within 1 week. Continue your home medications: -Paroxetine as prescribed -Klonopin as prescribed -Crestor as prescribed We have started you on 2 new medications. Take Toprol XL 12.5 mg by mouth daily. Take Xarelto 20 mg by mouth daily Please stop taking aspirin. *If you have chest pain, shortness of breath, or any new/worsening symptoms, please come back to the hospital immediately. Referrals: Bacilio Sood MD [Primary Care Provider] - Twan Ann MD [Staff Physician] - 1 Week Disposition: HOME - Home Medications Comprehensive Discharge Medication List: Ambulatory Orders Paroxetine HCl [Paxil] 20 mg PO DAILY 09/14/17 Rosuvastatin Calcium [Crestor] 5 mg PO DAILY 09/14/17 clonazePAM [Klonopin -] 0.5 mg PO BID 09/14/17 Metoprolol Succinate [Toprol XL -] 12.5 mg PO DAILY #30 tab.sr.24h 09/15/17 Rivaroxaban [Xarelto -] 20 mg PO DAILY #30 tablet 09/15/17 This patient is new to me today: Yes Date on this admission: 09/15/17 Emergency Visit: Yes ED Registration Date: 09/14/17 Care time: The patient presented to the Emergency Department on the above date and was hospitalized for further evaluation of their emergent condition. Critical Care patient: No - Discharge Referral Referred to [facility] Med P.[facility].: No
[2017-09-15 15:43] VITALS: BP 146/80; PULSE 62; TEMP 98.3
[2017-09-15] MEDS ORDERED: APIXABAN 5 MG TABLET PO SCH (22:00)
[2017-09-15] MEDS ORDERED: ROSUVASTATIN CA 5 MG TABLET (FP) PO SCH ×2 (22:00)
== END 2017-09-15 15:40 | disposition home or self-care (01) | DRG 310 ==
LOC: FER 17:37 → J4W 23:00
PROVIDERS: ADMIT Internal Medicine; ATTEND Internal Medicine
DX: I48.0 Paroxysmal atrial fibrillation (principal); I10 Essential (primary) hypertension; F41.8 Other specified anxiety disorders; E78.5 Hyperlipidemia, unspecified; I47.1 Supraventricular tachycardia; E87.6 Hypokalemia; E83.42 Hypomagnesemia; I25.10 Atherosclerotic heart disease of native coronary artery without angina pectoris; Z87.891 Personal history of nicotine dependence; Z96.642 Presence of left artificial hip joint
CPT/HCPCS: 36415; 71045-TC-FY; 80048; 80053; 81003; 81015; 82465; 82550; 83735; 83880; 84100; 84443; 84484; 85025; 85610; 85730; 86850; 86900; 86901; 93005; 93306-TC; 99283-25; J7030

== ENCOUNTER 2021-04-18 07:17 | Emergency (ER) | payer OTHER, MEDICARE ==
[2021-04-18 07:36] VITALS: BP 118/78; PULSE 70; TEMP 99.2; BMI 25.7
[2021-04-18] MEDS ORDERED: ALBUTEROL SO4 0.083% IH SOL 2.5 MG/3 ML VIAL.NEB. NEB ONE ×2 (07:49→07:54)
== END 2021-04-18 09:12 | disposition home or self-care (01) ==
LOC: FER 07:17
PROC: 3E0F7GC Introduction of Other Therapeutic Substance into Respiratory Tract, Via Natural or Artificial Opening (ICD-10-PCS; principal; 2021-04-18)
DX: J40 Bronchitis, not specified as acute or chronic (principal)
CPT/HCPCS: 71046-TC-FY; 87804; 87807; 94640; 99284-25; C9803; U0003; U0005

== ENCOUNTER 2021-04-25 12:14 | Observation (INO) | payer OTHER, MEDICARE ==
[2021-04-25] MEDS ORDERED: SODIUM CHLORIDE 0.9% 1000 ML INFUS.BAG IV ONE (12:53)
[2021-04-25] MEDS ORDERED: AMPICILLIN NA/SULBACTAM NA 3 GM in SODIUM CHLORIDE 100 ML IVPB ONE (13:35)
[2021-04-25] MEDS ORDERED: METOCLOPRAMIDE HCL INJECTION 10 MG/2 ML VIAL IVPUSH ONE (13:40)
[2021-04-25] MEDS ORDERED: METOCLOPRAMIDE HCL INJECTION 10 MG/2 ML VIAL ONE (13:42)
[2021-04-25] MEDS ORDERED: AMPICILLIN NA/SULBACTAM NA 3 GM VIAL ONE (13:43)
[2021-04-25 14:01] LABS: INR 1.77 (0.82-1.09); PROTHROMBIN TIME (PATIENT) 19.6 SEC (10.2-13.0)
[2021-04-25 14:08] LABS: BASO % 2.3 % (0-2.0); EOS % 0.7 % (0-4.5); HEMATOCRIT 38.2 % (32.4-45.2); HEMOGLOBIN 12.7 GM/dl (10.7-15.3); MCH 30.2 pg (25.7-33.7); MCHC 33.2 g/dl (32.0-36.0); MEAN CELL VOLUME 90.9 fl (80-96); MEAN PLT VOLUME 10.2 fl (7.5-11.1); MONO % 5.5 % (3.8-10.2); NEUT % 74.5 % (42.8-82.8); PLATELET COUNT 308 10^3/uL (134-434); RDW 12.6 % (11.6-15.6); WHITE BLOOD COUNT 9.1 K/mm3 (4.0-10.8)
[2021-04-25 14:14] LABS: ALBUMIN 3.7 g/dl (3.4-5.0); BILIRUBIN,TOTAL 1.9 mg/dl (0.2-1); CALCIUM 8.7 mg/dl (8.5-10); CREATININE 0.9 mg/dl (0.55-1.3); MAGNESIUM 2.2 mg/dL (1.8-2.4); TOT PROT 6.9 g/dl (6.4-8.2)
[2021-04-25] MEDS ORDERED: amLODIPine BESYLATE 5 MG TABLET (FP) PO ONE (14:23)
[2021-04-25] MEDS ORDERED: amLODIPine BESYLATE 5 MG TABLET (FP) ONE (14:30)
[2021-04-25 15:10] LABS: N-TERMINAL BNP 356.1 pg/ml (5-450)
[2021-04-25] MEDS ORDERED: ALBUTEROL SO4 HFA INHALER IH PRN (15:19)
[2021-04-25] MEDS ORDERED: ACETAMINOPHEN 325 MG TABLET (FP) PO PRN (15:24)
[2021-04-25] MEDS: SODIUM CHLORIDE 1,000 ML IV SCH (17:00)
[2021-04-25 17:30] VITALS: BMI 24.7
[2021-04-25] MEDS ORDERED: RIVAROXABAN 20 MG TABLET PO SCH (18:00)
[2021-04-25] MEDS: guaiFENesin/D-METHORPHAN TAB.ER.12H PO SCH (21:32)
[2021-04-25] MEDS: AMPICILLIN NA/SULBACTAM NA 3 GM in SODIUM CHLORIDE 100 ML IVPB SCH (21:48)
[2021-04-26] MEDS ORDERED: SODIUM CHLORIDE 100 ML IVPB ONE ×2 (02:38→09:17)
[2021-04-26] MEDS ORDERED: AMPICILLIN NA/SULBACTAM NA 3 GM VIAL ONE ×2 (02:38→09:17)
[2021-04-26] MEDS: AMPICILLIN NA/SULBACTAM NA 3 GM in SODIUM CHLORIDE 100 ML IVPB SCH ×2 (02:41→09:55)
[2021-04-26 07:54] LABS: BASO % 0.8 % (0-2.0); EOS % 1.7 % (0-4.5); HEMATOCRIT 38.7 % (32.4-45.2); HEMOGLOBIN 13.1 GM/dl (10.7-15.3); LYMPH % 16.6 % (8-40); MCH 31.2 pg (25.7-33.7); MCHC 33.8 g/dl (32.0-36.0); MEAN CELL VOLUME 92.3 fl (80-96); MEAN PLT VOLUME 9.6 fl (7.5-11.1); NEUT % 73.9 % (42.8-82.8); PLATELET COUNT 286 10^3/uL (134-434); RBC 4.19 M/mm3 (3.60-5.2); RDW 12.9 % (11.6-15.6); WHITE BLOOD COUNT 8.3 K/mm3 (4.0-10.8)
[2021-04-26 08:03] LABS: ALBUMIN 3.5 g/dl (3.4-5.0); BILIRUBIN,TOTAL 1.8 mg/dl (0.2-1); CALCIUM 8.6 mg/dl (8.5-10); CREATININE 0.8 mg/dl (0.55-1.3); TOT PROT 6.5 g/dl (6.4-8.2)
[2021-04-26] MEDS: guaiFENesin/D-METHORPHAN TAB.ER.12H PO SCH (09:55)
[2021-04-26] MEDS ORDERED: metoPROLOL SUCCINATE 25 MG TAB.SR.24H (FP) PO SCH (10:00)
[2021-04-26] MEDS ORDERED: VANCOMYCIN HCL 1,500 MG in DEXTROSE 5%-WATER - 250 ML IVPB SCH (16:00)
[2021-04-26] MEDS ORDERED: CEFEPIME HCL/D5W 2 GM/50 ML BAG IVPB SCH (16:00)
[2021-04-26] MEDS ORDERED: HEPARIN NA (PORCINE) 5,000 UNITS/ML 1ML VIAL IVPUSH PRN ×2 (16:01)
[2021-04-26] MEDS ORDERED: VANCOMYCIN PREMIX 1.5 GM 1,500 MG/300 ML BAG IVPB SCH (16:15)
[2021-04-26] MEDS ORDERED: HEPARIN INFUSION - 25,000 UNITS/500 ML INFUS.BAG IVPB SCH (16:15)
[2021-04-26] MEDS ORDERED: CEFEPIME 2 GM in DEXTROSE 5%-WATER 2 GM/100 ML BAG IVPB SCH (16:15)
[2021-04-26] MEDS ORDERED: DEXTROSE 5%-WATER 100 ML IVPB ONE (16:32)
[2021-04-26] MEDS ORDERED: CEFEPIME HCL 2 GM VIAL (RESTRICTED TO ID) ONE (16:32)
[2021-04-26] MEDS: SODIUM CHLORIDE 1,000 ML IV SCH (17:07)
[2021-04-26] MEDS ORDERED: RIVAROXABAN 20 MG TABLET PO SCH (18:00)
[2021-04-26 19:06] VITALS: BP 135/63; PULSE 68; TEMP 98.7
[2021-04-26] MEDS ORDERED: ROSUVASTATIN CA 5 MG TABLET (FP) PO SCH (22:00)
== END 2021-04-26 19:00 | disposition short-term general hospital (02) ==
LOC: FER 12:14 → INTOOBSV 14:27 → FM/S 14:27
PROVIDERS: ADMIT Internal Medicine; ATTEND Nurse Practitioner Acute Care
PROC: 3E03329 Introduction of Other Anti-infective into Peripheral Vein, Percutaneous Approach (ICD-10-PCS; principal; 2021-04-25)
PROC: 3E033GC Introduction of Other Therapeutic Substance into Peripheral Vein, Percutaneous Approach (ICD-10-PCS; 2021-04-25)
PROC: 3E0337Z Introduction of Electrolytic and Water Balance Substance into Peripheral Vein, Percutaneous Approach (ICD-10-PCS; 2021-04-25)
DX: I10 Essential (primary) hypertension (principal); E78.00 Pure hypercholesterolemia, unspecified; Z87.891 Personal history of nicotine dependence; Z96.642 Presence of left artificial hip joint; J01.90 Acute sinusitis, unspecified; I48.91 Unspecified atrial fibrillation; Z79.01 Long term (current) use of anticoagulants; F41.8 Other specified anxiety disorders
CPT/HCPCS: 36415; 70450-TC; 70551-TC; 71045-TC-FY; 80053; 82550; 83605; 83735; 83880; 84443; 84484; 85025; 85610; 85730; 87040; 87804; 87807; 93005; 96365; 96375; 97116-GP; 97161-GP; 99285-25; C9803; G0378; U0003; U0005

== ENCOUNTER 2022-03-09 14:41 | Inpatient (IN) | payer OTHER, MEDICARE ==
[2022-03-09] MEDS ORDERED: ONDANSETRON 4 MG/2 ML VIAL IVPUSH ONE (17:10)
[2022-03-09] MEDS ORDERED: SODIUM CHLORIDE 1,000 ML IV STA (17:10)
[2022-03-09] MEDS ORDERED: PANTOPRAZOLE 40 MG TABLET PO ONE ×2 (17:13→18:07)
[2022-03-09] MEDS ORDERED: LACTATED RINGERS SOLUTION 1,000 ML IV SCH (17:15)
[2022-03-09] MEDS ORDERED: ONDANSETRON 4 MG/2 ML VIAL ONE (17:29)
[2022-03-09] MEDS ORDERED: hydrOXYzine PAMOATE 25 MG CAPSULE (FP) PO ONE ×2 (18:05→18:07)
[2022-03-09 18:06] LABS: BASO % 1.3 % (0-2.0); EOS % 0.4 % (0-4.5); HEMATOCRIT 39.2 % (32.4-45.2); HEMOGLOBIN 13.6 GM/dL (10.7-15.3); LYMPH % 15.5 % (8-40); MCH 32.5 pg (25.7-33.7); MCHC 34.7 g/dl (32.0-36.0); MEAN CELL VOLUME 93.7 fl (80-96); MONO % 8.4 % (3.8-10.2); NEUT % 74.4 % (42.8-82.8); PLATELET COUNT 217 10^3/uL (134-434); RBC 4.18 M/mm3 (3.60-5.2); RDW 13.6 % (11.6-15.6); WHITE BLOOD COUNT 7.4 K/mm3 (4.0-10.0)
[2022-03-09] MEDS ORDERED: ACETAMINOPHEN 325 MG TABLET (FP) PO PRN (18:24)
[2022-03-09] MEDS ORDERED: ONDANSETRON *ODT* 4 MG TABLET SL PRN (18:30)
[2022-03-09 18:50] LABS: ALBUMIN 3.7 g/dl (3.4-5.0); BLOOD UREA NITROGEN 17.2 mg/dL (7-18); CALCIUM 9.6 mg/dL (8.5-10.1); MAGNESIUM 2.5 mg/dL (1.8-2.4); TOT PROT 6.8 g/dl (6.4-8.2)
[2022-03-09] MEDS ORDERED: ACETAMINOPHEN 1000 MG/100 ML BAG IVPB ONE (19:00)
[2022-03-09] MEDS ORDERED: ACETAMINOPHEN INJECTION 100 ML IVPB ONE (19:17)
[2022-03-09] MEDS: POTASSIUM CHLORIDE 10 MEQ in SODIUM CHLORIDE 1,000 ML IVPB SCH (19:20)
[2022-03-09] MEDS: RIVAROXABAN 20 MG TABLET PO SCH (19:39)
[2022-03-09] MEDS ORDERED: HEPARIN NA (PORCINE) 5,000 UNITS/ML 1ML VIAL SQ SCH (22:00)
[2022-03-09] MEDS ORDERED: QUEtiapine FUMARATE 25 MG TABLET PO SCH (22:00)
[2022-03-09 23:31] VITALS: RESP 18
[2022-03-10] MEDS: POTASSIUM CHLORIDE 10 MEQ in SODIUM CHLORIDE 1,000 ML IVPB SCH (05:41)
[2022-03-10] MEDS ORDERED: SERTRALINE HCL 25 MG TABLET (FP) PO SCH (10:00)
[2022-03-10] MEDS: POLYETHYLENE GLYCOL (HEALTHYLAX) 3350 17 GM PACKET PO SCH ×2 (10:34→21:38)
[2022-03-10] MEDS: amLODIPine BESYLATE 5 MG TABLET (FP) PO SCH (10:34)
[2022-03-10 11:23] LABS: BASO % 2.2 % (0-2.0); EOS % 2.2 % (0-4.5); HEMATOCRIT 35.6 % (32.4-45.2); HEMOGLOBIN 12.4 GM/dL (10.7-15.3); MCH 32.7 pg (25.7-33.7); MCHC 34.8 g/dl (32.0-36.0); MEAN CELL VOLUME 94.1 fl (80-96); MEAN PLT VOLUME 10.4 fl (7.5-11.1); MONO % 8.9 % (3.8-10.2); NEUT % 69.7 % (42.8-82.8); PLATELET COUNT 184 10^3/uL (134-434); RBC 3.78 M/mm3 (3.60-5.2); RDW 13.7 % (11.6-15.6); WHITE BLOOD COUNT 4.8 K/mm3 (4.0-10.0)
[2022-03-10 11:25] LABS: INR 1.99 (0.83-1.09); PROTHROMBIN TIME (PATIENT) 23.1 SEC (9.7-13.0)
[2022-03-10 11:27] LABS: ACTIVATED PTT 24.7 SECONDS (25.2-36.5)
[2022-03-10 11:39] LABS: CALCIUM 8.7 mg/dL (8.5-10.1)
[2022-03-10 11:40] LABS: ALBUMIN 3.4 g/dl (3.4-5.0); BLOOD UREA NITROGEN 11.8 mg/dL (7-18)
[2022-03-10 11:42] LABS: CREATININE 0.9 mg/dL (0.55-1.3)
[2022-03-10 11:44] LABS: TOT PROT 6.2 g/dl (6.4-8.2)
[2022-03-10 11:45] LABS: BILIRUBIN,TOTAL 1.8 mg/dL (0.2-1)
[2022-03-10 12:34] LABS: BILIRUBIN,DIRECT 0.4 mg/dL (0.0-0.2)
[2022-03-10] MEDS ORDERED: LORazepam 0.5 MG TABLET PO ONE (15:40)
[2022-03-10] MEDS: RIVAROXABAN 20 MG TABLET PO SCH (18:34)
[2022-03-10] MEDS: MIRTAZAPINE 15 MG TABLET (FP) PO SCH (21:37)
[2022-03-11] MEDS: LORazepam 0.5 MG TABLET PO SCH ×2 (00:31→09:16)
[2022-03-11] MEDS: POLYETHYLENE GLYCOL (HEALTHYLAX) 3350 17 GM PACKET PO SCH (09:16)
[2022-03-11] MEDS: amLODIPine BESYLATE 5 MG TABLET (FP) PO SCH (09:17)
[2022-03-11 11:50] LABS: ALBUMIN 3.6 g/dl (3.4-5.0); BLOOD UREA NITROGEN 10.4 mg/dL (7-18)
[2022-03-11 11:52] LABS: BILIRUBIN,DIRECT 0.4 mg/dL (0.0-0.2); CREATININE 0.9 mg/dL (0.55-1.3)
[2022-03-11 11:54] LABS: BILIRUBIN,TOTAL 1.7 mg/dL (0.2-1); TOT PROT 6.8 g/dl (6.4-8.2)
[2022-03-11] MEDS: RIVAROXABAN 20 MG TABLET PO SCH (17:55)
[2022-03-12] MEDS: LORazepam 0.5 MG TABLET PO SCH ×2 (00:30→09:26)
[2022-03-12] MEDS: MIRTAZAPINE 15 MG TABLET (FP) PO SCH (00:31)
[2022-03-12] MEDS: POLYETHYLENE GLYCOL (HEALTHYLAX) 3350 17 GM PACKET PO SCH ×2 (00:31→09:26)
[2022-03-12 05:50] VITALS: PULSE 75
[2022-03-12] MEDS: amLODIPine BESYLATE 5 MG TABLET (FP) PO SCH (09:26)
[2022-03-12 11:52] VITALS: BP 112/77; TEMP 98.4
[2022-03-12 12:12] LABS: ALBUMIN 3.3 g/dl (3.4-5.0); BLOOD UREA NITROGEN 14.7 mg/dL (7-18); CALCIUM 8.8 mg/dL (8.5-10.1)
[2022-03-12 12:14] LABS: CREATININE 0.7 mg/dL (0.55-1.3)
[2022-03-12 12:16] LABS: BILIRUBIN,TOTAL 1.6 mg/dL (0.2-1); TOT PROT 6.2 g/dl (6.4-8.2)
[2022-03-12 14:26] VITALS: BMI 23.4
== END 2022-03-12 14:45 | disposition home or self-care (01) | DRG 880 ==
LOC: JER 14:41 → JERBED 17:08 → J6S 21:14
PROVIDERS: ADMIT Internal Medicine; ATTEND Internal Medicine
DX: F41.9 Anxiety disorder, unspecified (principal); K86.2 Cyst of pancreas; I48.91 Unspecified atrial fibrillation; I10 Essential (primary) hypertension; F32.A Depression, unspecified; Z79.01 Long term (current) use of anticoagulants; R63.4 Abnormal weight loss; Z68.23 Body mass index [BMI] 23.0-23.9, adult
CPT/HCPCS: 0241U-QW; 36415; 71045-TC-FY; 74183-TC; 80053; 82150; 82248; 82962; 83605; 83690; 83735; 84443; 85025; 85610; 85730; 93005; 93010; 99285-25; A9579